=== PATIENT | female | born 1990 | race Hispanic/Latino ===

== ENCOUNTER 2017-08-25 20:12 | Emergency (ER) | payer BC ==
--- NOTE | 2017-08-25 21:18 | RAD ---
FOUR VIEWS OF THE LEFT KNEE 08/25/17 COMPARISON: None. HISTORY: Left knee pain after falling from standing walking down stairs. FINDINGS: Four views left knee shows no evidence of acute fracture or dislocation. No knee effusion is seen. No degenerative changes are present. IMPRESSION: Unremarkable exam. POS: [facility]
[2017-08-25] MEDS ORDERED: HYDROcodone/Acetaminophen 5/325 mg Tablet ONE (22:37)
== END 2017-08-25 22:39 | disposition home or self-care (01) ==
LOC: SCSER 20:12
DX: S83.92XA Sprain of unspecified site of left knee, initial encounter (principal); S90.511A Abrasion, right ankle, initial encounter; E11.9 Type 2 diabetes mellitus without complications; W18.30XA Fall on same level, unspecified, initial encounter